=== PATIENT | male | born 1985 | race Caucasian/White ===

== ENCOUNTER 2018-03-07 14:45 | Emergency (ER) | payer BC ==
[2018-03-07 14:53] VITALS: TEMP 36.6; Ht 165.1 cm
--- NOTE | 2018-03-07 15:22 | EMERGENCY ROOM VISIT NOTE ---
History First contact with patient: 14:48 Chief Complaint: SYNCOPE (NEAR SYNCOPE) Stated Complaint: NEAR SYNCOPE Nursing Triage Summary: [facility] reported pt had tunnel vision, headache denies chest pain & sob History of Present Illness The patient is a 32 year old male with no sig who presents to the Emergency Room with complaints of seeing spots in his eyes and then subsequently chest pain with radiation to the left arm when he was seen at [facility]. The spots on the eyes occurred suddenly while he was working. He was not sitting and rising to a stand, he did not have a recent BM. Once he went to [employer] , he starting having a dull chest pain that radiated to the left arm. He has had "chronic" chest pain for the past 1-2 years but he states this was distinctly worse. No SOB, no swelling of the hands or feel. He has not been feeling ill at all. He states that his chest pain resolved in the ambulance on the way here. He does not take any medications. Has been feeling lightheaded when he is standing up too quickly for the past two weeks. Coffee and banana for breakfast - this is normal. Pt does have a watch that tracks his heart rate. His resting rate is in the 70s usually, it's now in the 60s. SHx: From [employer], no PCP, moved here 1.5 years ago to be with his girlfriend, works at [employer]. Alcohol : 1-2x per week. Current Vaper, does not chew, former smoker. Denies marijuana use, denies cocaine use. Review of Systems See HPI for pertinent positives and negatives. A total of ten systems were reviewed and were otherwise negative. Constitutional: No fever, No chills, No weight loss ENT: No hearing loss Respiratory: No cough, No sputum, No wheezing, No shortness of breath Cardiovascular: + chest pain, No edema, No claudication, No palpitations Musculoskeletal: No muscle pain Genitourinary - Male: No hematuria, No dysuria Neurologic: No memory loss Past Medical/Surgical History Medical Problems: (1) No Known Active Medical Problems Social History Smoking Status: Former Smoker Current/Historical Medications Scheduled Esomeprazole Magnesium (Nexium 24Hr), 20 MG PO DAILY Physical Exam Vital Signs Date Time Temp Pulse Resp B/P (MAP) Pulse Ox O2 Delivery O2 Flow Rate FiO2 03/07/18 17:46 63 15 130/86 97 Room Air 03/07/18 16:46 58 20 131/79 96 Room Air 03/07/18 16:45 62 15 97 03/07/18 16:03 131/79 03/07/18 15:00 65 20 135/77 98 Room Air 03/07/18 14:53 36.6 61 14 123/86 100 Room Air Physical Exam Gen: No acute distress. When standing his heart rate when from 65 to 95, BP did elevate. HEENT: Head - normocephalic and atraumatic. Pupils are equal, round, and reactive to light. Extraocular eye muscles are intact and sclera are anicteric. Ears - bilaterally patent canals with noninjected tympanic membranes and no evidence of hemotympanum. Nose - moist nasal mucosa without discharge. Mouth - moist buccal mucosa. Oropharynx is nonerythematous and there is no tonsillar exudate or edema noted. Neck: Supple; no JVD, nuchal rigidity, cervical lymphadenopathy, or auscultated bruits. Heart: Regular rate and rhythm. There is a normal S1 and S2 with no murmurs, clicks, or gallops appreciated. Lungs: Clear to auscultation bilaterally with no wheezes, rales, or rhonchi. Abdomen: Soft, completely nontender, nondistended, with good bowel sounds. There are no palpable pulsatile masses or hepatosplenomegaly. There is no guarding, rigidity, or rebound noted. Extremities: No evidence of cyanosis, clubbing, or edema. There are easily palpable peripheral pulses. SKIN: Tattooes on arms and upper back. Neuro:The patient is awake and alert, oriented to day, time, and place. Muscle strength is 5/5 in all 4 extremities. The patient has equal senior analyst programmer strength and equal pedal push and pull. There are no cerebellar signs. Cranial nerves 2-12 are wnl. Sensation to light touch equal and symmetrical on upper and lower extremities. Medical Decision & Procedures ER Provider Diagnostic Interpretation: HEAD WITHOUT CONTRAST (CT) CLINICAL HISTORY: 32 years-old Male with Visual changes. Acute visual changes TECHNIQUE: Multiple axial CT images of the head were obtained without contrast. A dose lowering technique was utilized adhering to the principles of ALARA. CT DOSE: 614.27 mGy.cm COMPARISON: None. FINDINGS: No acute intracranial hemorrhage, midline shift, intracranial mass, hydrocephalus, territorial ischemia or abnormal extra-axial collection. Suggested cavum septum pellucidum. The calvarium is intact. Minimal partially imaged polypoid mucosal thickening of the left maxillary sinus with mild ethmoid and sphenoid sinus disease also noted. Mastoid air cells and middle ear cavities are clear. Soft tissues and orbits are unremarkable. IMPRESSION: No acute intracranial abnormality. CHEST ONE VIEW PORTABLE CLINICAL HISTORY: Chest Pain dyspnea COMPARISON STUDY: No previous studies for comparison. FINDINGS: The bones soft tissues and hemidiaphragms are normal. The cardiomediastinal silhouette is normal. The lungs are clear. The pulmonary vasculature is normal. IMPRESSION: Negative chest. Laboratory Results 03/07/18 14:57 Red Blood Count 4.75, Mean Corpuscular Volume 87.4, Mean Corpuscular Hemoglobin 29.9, Mean Corpuscular Hemoglobin Concent 34.2, Mean Platelet Volume 9.5, Neutrophils (%) (Auto) 51.6, Lymphocytes (%) (Auto) 38.9, Monocytes (%) (Auto) 5.8, Eosinophils (%) (Auto) 2.9, Basophils (%) (Auto) 0.7, Neutrophils # (Auto) 3.49, Lymphocytes # (Auto) 2.64, Monocytes # (Auto) 0.39, Eosinophils # (Auto) 0.20, Basophils # (Auto) 0.05 03/07/18 14:57 Test 03/07/18 14:57 03/07/18 17:45 White Blood Count 6.78 K/uL (4.8-10.8) Red Blood Count 4.75 M/uL (4.7-6.1) Hemoglobin 14.2 g/dL (14.0-18.0) Hematocrit 41.5 % (42-52) Mean Corpuscular Volume 87.4 fL (80-100) Mean Corpuscular Hemoglobin 29.9 pg (25-34) Mean Corpuscular Hemoglobin Concent 34.2 g/dl (32-36) Platelet Count 195 K/uL (130-400) Mean Platelet Volume 9.5 fL (7.4-10.4) Neutrophils (%) (Auto) 51.6 % Lymphocytes (%) (Auto) 38.9 % Monocytes (%) (Auto) 5.8 % Eosinophils (%) (Auto) 2.9 % Basophils (%) (Auto) 0.7 % Neutrophils # (Auto) 3.49 K/uL (1.4-6.5) Lymphocytes # (Auto) 2.64 K/uL (1.2-3.4) Monocytes # (Auto) 0.39 K/uL (0.11-0.59) Eosinophils # (Auto) 0.20 K/uL (0-0.5) Basophils # (Auto) 0.05 K/uL (0-0.2) RDW Standard Deviation 42.4 fL (36.4-46.3) RDW Coefficient of Variation 13.2 % (11.5-14.5) Immature Granulocyte % (Auto) 0.1 % Immature Granulocyte # (Auto) 0.01 K/uL (0.00-0.02) Anion Gap 4.0 mmol/L (3-11) Estimated GFR () 117.6 Estimated GFR (Non- 101.4 BUN/Creatinine Ratio 9.8 (10-20) Calcium Level 9.2 mg/dl (8.5-10.1) Troponin I < 0.015 ng/ml (0-0.045) Medical Decision The patient's care and disposition was discussed with Dr. Luz, Attending ED Physician. This is a 32M with visual symptoms and chest pain with radiation to the left arm. Differential diagnosis include cardiac ischemia, aortic dissection, pulmonary embolism, pneumonia, pneumothorax, musculoskeletal, infections, gastrointestinal, amaurosis fugax as well as others were entertained. Triage Nursing notes were reviewed. ED Course included an extensive history and physical exam, labs, EKG, X-ray and CT Head. Lab results WNL. Trop negative. 3pm - Pt seen and examined by resident. 3:15pm - Case discussed with Dr. Luz. 4:30pm - Results reviewed with patient. Pt doing well. OK to go home. Unlikely cardiac or intracranial pathology. Also advised to follow up with roller stainer for floaters - per Dr. Luz pt's reported having floaters in the past. 6:15pm - Repeat Troponin was discussed with patient and normal. The pt was informed about the findings as listed above. All questions were answered. Return instructions were outlined and the patient was discharged in good condition. The patient was referred to PCP for recheck of the current condition. Head Trauma GCS Score: 15 Impression Primary Impression: Chest pain of unknown etiology Departure Information Dispostion Home / Self-Care Condition GOOD Patient Instructions Chest Pain - [facility], [facility] Additional Instructions Your lab work and EKG were reviewed and found to be normal. The CT Scan of your head was also normal. We recommend following up with your roller stainer for the floaters in your eyes. The cause of your chest pain is unknown. If you experience worsening of your symptoms please return to the ER immediately. Worsening of your symptoms include chest pain that radiates to the left arm, inability to breath and worsening visual changes. Information on chest pain of unknown origin will be printed for your on discharge. Please read this information carefully. Resident Involvement: Resident Care Provided Care Provided: Adult Hospital Medicine
[2018-03-07] MEDS ORDERED: ESOM1CAP24 PO (15:36)
[2018-03-07 15:54] LABS: BASO % 0.7 %; BASO ABS # 0.05 K/uL (0-0.2); EOS % 2.9 %; HEMATOCRIT 41.5 % (42-52); HEMOGLOBIN 14.2 g/dL (14.0-18.0); IG# 0.01 K/uL (0.00-0.02); LYMPH % 38.9 %; LYMPH ABS # 2.64 K/uL (1.2-3.4); MEAN CELL VOLUME 87.4 fL (80-100); MEAN CORPUSCULAR HEMOGLOBIN 29.9 pg (25-34); MEAN CORPUSCULAR HGB CONC 34.2 g/dl (32-36); MEAN PLATELET VOLUME 9.5 fL (7.4-10.4); MONO % 5.8 %; MONO ABS # 0.39 K/uL (0.11-0.59); NEUT % 51.6 %; NEUT ABS # 3.49 K/uL (1.4-6.5); PLATELET COUNT 195 K/uL (130-400); RED CELL DISTRIBUTION WIDTH CV 13.2 % (11.5-14.5); RED CELL DISTRIBUTION WIDTH SD 42.4 fL (36.4-46.3); WHITE BLOOD COUNT 6.78 K/uL (4.8-10.8)
--- NOTE | 2018-03-07 15:57 | DIAGNOSTIC IMAGING REPORT ---
CHEST ONE VIEW PORTABLE CLINICAL HISTORY: Chest Pain dyspnea COMPARISON STUDY: No previous studies for comparison. FINDINGS: The bones soft tissues and hemidiaphragms are normal. The cardiomediastinal silhouette is normal. The lungs are clear. The pulmonary vasculature is normal. IMPRESSION: Negative chest. The above report was generated using voice recognition software. It may contain grammatical, syntax or spelling errors. Electronically signed by: Ed Sung M.D. 03/07/2018 3:56 PM Dictated Date/Time: 03/07/2018 3:56 PM
[2018-03-07 16:05] LABS: BLOOD UREA NITROGEN 10 mg/dl (7-18); CALCIUM 9.2 mg/dl (8.5-10.1); CARBON DIOXIDE 28 mmol/L (21-32); CREATININE 0.97 mg/dl (0.60-1.40); GLUCOSE 93 mg/dl (70-99); SODIUM 138 mmol/L (136-145)
--- NOTE | 2018-03-07 16:05 | DIAGNOSTIC IMAGING REPORT ---
HEAD WITHOUT CONTRAST (CT) CLINICAL HISTORY: 32 years-old Male with Visual changes. Acute visual changes TECHNIQUE: Multiple axial CT images of the head were obtained without contrast. A dose lowering technique was utilized adhering to the principles of ALARA. CT DOSE: 614.27 mGy.cm COMPARISON: None. FINDINGS: No acute intracranial hemorrhage, midline shift, intracranial mass, hydrocephalus, territorial ischemia or abnormal extra-axial collection. Suggested cavum septum pellucidum. The calvarium is intact. Minimal partially imaged polypoid mucosal thickening of the left maxillary sinus with mild ethmoid and sphenoid sinus disease also noted. Mastoid air cells and middle ear cavities are clear. Soft tissues and orbits are unremarkable. IMPRESSION: No acute intracranial abnormality. The above report was generated using voice recognition software. It may contain grammatical, syntax or spelling errors. Electronically signed by: Remi Valdovinos M.D. 03/07/2018 4:04 PM Dictated Date/Time: 03/07/2018 4:01 PM
[2018-03-07 17:46] VITALS: O2SAT 97
--- NOTE | 2018-03-07 17:57 | EMERGENCY ROOM VISIT NOTE ---
History Report prepared by Jose: Yogi Napier Under the Supervision of: Dr. Oren Luz D.O. First contact with patient: 14:48 Stated Complaint: NEAR SYNCOPE History of Present Illness The patient is a 32 year old male who presents to the Emergency Room with complaints of an episode of bilateral visual changes occurring today. He describes his visual changes as "seeing spots". The patient states that the spots began in localized areas, and then moved throughout his eyes to random spots. He states that he then developed tunnel vision. He states that he began to feel tingling to his fingers, and shortness of breath. 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 He was seen at [facility] for his symptoms and was referred to the ED. He states that he developed left-sided chest pain radiating into his right arm while at [facility], but this resolved en route. The patient notes that he has felt lightheaded with standing recently. Pt denies headache, fevers , nausea, vomiting, diarrhea, pain with urination, and melena. Patient denies swelling of calves, recent trips, history of immobilization or recent surgery, prior history of DVT, hemoptysis, history of malignancy, or control/ estrogen use. Patient denies swelling of calves, recent trips, history of immobilization or recent surgery, prior history of DVT, hemoptysis, history of malignancy, or control/estrogen use. He is a former smoker. He has no history of aortic problems. Source of History: patient Onset: Today Position: eye (bilateral) Symptom Intensity: "seeing spots" Quality: other (visual changes) Timing: other (episode) Associated Symptoms: + chest pain (resolved en route), No fevers, No headache, No SOB, No nausea, No vomiting, No melena, No diarrhea, No urinary symptoms Note: Positive: lightheadedness with standing. Review of Systems See HPI for pertinent positives & negatives. A total of 10 systems reviewed and were otherwise negative. Past Medical & Surgical Medical Problems: (1) No Known Active Medical Problems Family History No pertinent family history stated. Social History Housing Status: lives with significant other Occupation Status: employed Current/Historical Medications Scheduled Esomeprazole Magnesium (Nexium 24Hr), 20 MG PO DAILY Allergies Coded Allergies: No Known Allergies (Unverified , 03/07/18) Physical Exam Vital Signs Date Time Temp Pulse Resp B/P (MAP) Pulse Ox O2 Delivery O2 Flow Rate FiO2 03/07/18 17:46 63 15 130/86 97 Room Air 03/07/18 16:46 58 20 131/79 96 Room Air 03/07/18 16:45 62 15 97 03/07/18 16:03 131/79 03/07/18 15:00 65 20 135/77 98 Room Air 03/07/18 14:53 36.6 61 14 123/86 100 Room Air Physical Exam GENERAL: Sitting up in bed, alert, well appearing, well nourished, no distress, non-toxic EYE EXAM: normal conjunctiva. PERRL and EOM's intact. OROPHARYNX: no exudate, no erythema, lips, buccal mucosa, and tongue normal and mucous membranes are moist NECK: supple, no nuchal rigidity, no adenopathy, non-tender LUNGS: Clear to auscultation. Normal chest wall mechanics HEART: no murmurs, S1 normal and S2 normal ABDOMEN: abdomen soft, non-tender, normo-active bowel sounds, no masses, no rebound or guarding. BACK: Back is symmetrical on inspection and there is no deformity, no midline tenderness, no CVA tenderness. SKIN: no rashes and no bruising UPPER EXTREMITIES: upper extremities are grossly normal. Radial pulses are equal bilateral LOWER EXTREMITIES: No pitting edema. Calves are equal bilateral NEURO EXAM: Normal sensorium, cranial nerves II-XII intact, normal speech, no weakness of arms, no weakness of legs. No drift. Finger to nose intact. Gross sensation intact. Medical Decision & Procedures ER Provider Diagnostic Interpretation: Radiology results as stated below per my review and the radiologist's interpretation: CHEST ONE VIEW PORTABLE FINDINGS: The bones soft tissues and hemidiaphragms are normal. The cardiomediastinal silhouette is normal. The lungs are clear. The pulmonary vasculature is normal. IMPRESSION: Negative chest. The above report was generated using voice recognition software. It may contain grammatical, syntax or spelling errors. Electronically signed by: Ed Sung M.D. 03/07/2018 3:56 PM HEAD WITHOUT CONTRAST (CT) FINDINGS: No acute intracranial hemorrhage, midline shift, intracranial mass, hydrocephalus, territorial ischemia or abnormal extra-axial collection. Suggested cavum septum pellucidum. The calvarium is intact. Minimal partially imaged polypoid mucosal thickening of the left maxillary sinus with mild ethmoid and sphenoid sinus disease also noted. Mastoid air cells and middle ear cavities are clear. Soft tissues and orbits are unremarkable. IMPRESSION: No acute intracranial abnormality. The above report was generated using voice recognition software. It may contain grammatical, syntax or spelling errors. Electronically signed by: Remi Valdovinos M.D. 03/07/2018 4:04 PM Laboratory Results 03/07/18 14:57 Red Blood Count 4.75, Mean Corpuscular Volume 87.4, Mean Corpuscular Hemoglobin 29.9, Mean Corpuscular Hemoglobin Concent 34.2, Mean Platelet Volume 9.5, Neutrophils (%) (Auto) 51.6, Lymphocytes (%) (Auto) 38.9, Monocytes (%) (Auto) 5.8, Eosinophils (%) (Auto) 2.9, Basophils (%) (Auto) 0.7, Neutrophils # (Auto) 3.49, Lymphocytes # (Auto) 2.64, Monocytes # (Auto) 0.39, Eosinophils # (Auto) 0.20, Basophils # (Auto) 0.05 03/07/18 14:57 Test 03/07/18 14:57 03/07/18 17:45 White Blood Count 6.78 K/uL (4.8-10.8) Red Blood Count 4.75 M/uL (4.7-6.1) Hemoglobin 14.2 g/dL (14.0-18.0) Hematocrit 41.5 % (42-52) Mean Corpuscular Volume 87.4 fL (80-100) Mean Corpuscular Hemoglobin 29.9 pg (25-34) Mean Corpuscular Hemoglobin Concent 34.2 g/dl (32-36) Platelet Count 195 K/uL (130-400) Mean Platelet Volume 9.5 fL (7.4-10.4) Neutrophils (%) (Auto) 51.6 % Lymphocytes (%) (Auto) 38.9 % Monocytes (%) (Auto) 5.8 % Eosinophils (%) (Auto) 2.9 % Basophils (%) (Auto) 0.7 % Neutrophils # (Auto) 3.49 K/uL (1.4-6.5) Lymphocytes # (Auto) 2.64 K/uL (1.2-3.4) Monocytes # (Auto) 0.39 K/uL (0.11-0.59) Eosinophils # (Auto) 0.20 K/uL (0-0.5) Basophils # (Auto) 0.05 K/uL (0-0.2) RDW Standard Deviation 42.4 fL (36.4-46.3) RDW Coefficient of Variation 13.2 % (11.5-14.5) Immature Granulocyte % (Auto) 0.1 % Immature Granulocyte # (Auto) 0.01 K/uL (0.00-0.02) Anion Gap 4.0 mmol/L (3-11) Estimated GFR () 117.6 Estimated GFR (Non- 101.4 BUN/Creatinine Ratio 9.8 (10-20) Calcium Level 9.2 mg/dl (8.5-10.1) Laboratory results per my review. ECG Per My Interpretation Indication: chest pain Rate (beats per minute): 57 Rhythm: sinus bradycardia Findings: other (Normal axis. No PVCs. ) ED Course ED COURSE: Vital signs were reviewed and showed normal vitals. The patients medical record was reviewed The above diagnostic studies were performed and reviewed. ED treatments and interventions as stated above. 1449: The patient was evaluated in room B12A. A complete history and physical examination was performed. 1810: Upon reevaluation, the patient is resting comfortably. I discussed my findings with the patient and he understands and agrees with the treatment plan. Based on the patients age, coexisting illnesses, exam and lab findings the decision to treat as an outpatient was made. The patient remained stable while under my care. The patient appeared well at the time of discharge. Medical Decision Differential diagnosis includes etiologies such as vasovagal event, infection, hypoglycemia, electrolyte abnormalities, cardiac sources, intracerebral event, toxicologic, neurologic, as well as others were entertained. Patient is a 32-year-old male that presents to ER initially saw spots in his eyes and started feeling short of breath associated with paresthesias of the upper extremities dizziness and lightheadedness. He then started complaining of left chest pain and arm pain. This resolved shortly after it started. He is a smoker but otherwise has no cardiac or PE risk factors. CBC along with BMP was unremarkable. Troponin was negative. Repeat troponin was unremarkable as well. EKG was nondiagnostic. CT of the head was negative chest x-ray was unremarkable. Patient was updated at bedside and seen independently of the resident. He was discharged to follow-up with PCP as an outpatient as I do believe he had a near syncopal episode and that this is not cardiac or PE in nature. Discussed with Pt concerning signs and symptoms to watch out for. Pt was instructed to follow up with their PCP and discussed with the patient their option to return to the ED at anytime for persistent or worsening symptoms. The appropriate anticipatory guidance and out-patient management, including indications for return to the emergency department, were explained at length to the patient and understood. Medication Reconcilliation Current Medication List: was personally reviewed by me Blood Pressure Screening Patient's blood pressure: Normal blood pressure Blood pressure disposition: Did not require urgent referral Impression Primary Impression: Chest pain of unknown etiology Scribe Attestation The scribe's documentation has been prepared under my direction and personally reviewed by me in its entirety. I confirm that the note above accurately reflects all work, treatment, procedures, and medical decision making performed by me. Departure Information Dispostion Home / Self-Care Forms HOME CARE DOCUMENTATION FORM, IMPORTANT VISIT INFORMATION Patient Instructions Chest Pain - [facility], [facility] Additional Instructions Please follow up with your primary care doctor or if you are a student, [facility] with in the next 24 hours. Any worsening of your symptoms, please return to the ED immediately. This includes any fevers greater than 100.4, worsening pain, chest pain, shortness breath, persistent nausea, vomiting, unable to eat or drink, or any other concerning signs or symptoms from your standpoint. Your lab work and EKG were reviewed and found to be normal. The CT Scan of your head was also normal. We recommend following up with your fisher hoop net for the floaters in your eyes. The cause of your chest pain is unknown. If you experience worsening of your symptoms please return to the ER immediately. Worsening of your symptoms include chest pain that radiates to the left arm, inability to breath and worsening visual changes. Information on chest pain of unknown origin will be printed for your on discharge. Please read this information carefully.
[2018-03-07 18:38] VITALS: BP 114/76; PULSE 63
== END 2018-03-07 18:40 | disposition home or self-care (01) ==
LOC: EDBD 14:45 → C.EDB 14:47
DX: R07.9 Chest pain, unspecified (principal); F17.290 Nicotine dependence, other tobacco product, uncomplicated